=== PATIENT | male | born 1960 | race Caucasian/White ===

== ENCOUNTER 2019-05-24 17:39 | Emergency (ER) | payer SELFPAY ==
[2019-05-24 17:49] VITALS: BP 166/94
== END 2019-05-24 18:32 | disposition left against medical advice (07) ==
LOC: ED 17:39
DX: Z53.21 Procedure and treatment not carried out due to patient leaving prior to being seen by health care provider (principal)
CPT/HCPCS: 99281

== ENCOUNTER 2022-08-26 20:16 | Inpatient (IN) ==
[2022-08-26] MEDS ORDERED: LORazepam 2 mg VIAL 1 ml IV ONE (20:28)
[2022-08-26] MEDS ORDERED: NS 0.9% 1000 ml BAG 1,000 ML IV ONE (20:28)
[2022-08-26 21:42] LABS: ABS Lymphocytes 0.4 10^3/ul (1.0-4.8); ABS Monocytes 0.6 10^3/ul (0-0.8); ABS Neutrophils 8.2 10^3/ul (1.5-7.7); Hematocrit 27 % (42-52); Hemoglobin 8.7 g/dL (14.0-18.0); Lymphocyte % 4.2 %; Mean Corpuscular HGB Conc 32 g/dL (31-36); Mean Corpuscular Hemoglobin 26 pg (27-31); Mean Corpuscular Volume 79 fL (80-94); Mean Platelet Volume 6.7 fL (7.4-10.4); Platelet Count 384 10^3/uL (150-450); Red Blood Count 3.42 10^6 /uL (4.18-5.48); Red Cell Distribution Width 18 % (10-15); White Blood Count 9.2 10^3/uL (3.5-10.8)
[2022-08-26 21:55] LABS: INR 0.91 (0.89-1.11)
[2022-08-26 22:19] LABS: Albumin 3.7 g/dL (3.2-5.2); Anion Gap 5 mmol/L (2-11); CO2 Carbon Dioxide 29 mmol/L (22-32); Calcium 9.1 mg/dL (8.6-10.3); Chloride 98 mmol/L (101-111); Magnesium 1.8 mg/dL (1.9-2.7); Potassium 4.5 mmol/L (3.5-5.0); Sodium 132 mmol/L (135-145)
[2022-08-26 22:25] LABS: ALT 9 U/L (7-52); AST 15 U/L (13-39); Albumin/Globulin Ratio 1.3 (1-3); Alcohol, S < 13 mg/dL (<13); Alkaline Phosphatase 95 U/L (35-149); Blood Urea Nitrogen 20 mg/dL (6-24); Globulin 2.9 g/dL (2-4); Glucose 108 mg/dL (70-100); Total Protein 6.6 g/dL (6.4-8.9); eGFR CKD-EPI 96.3 (>60)
[2022-08-26] MEDS ORDERED: levETIRAcetam 1000MG IVPREMIX 1,000 MG/100 ML BAG IVPB ONE (22:51)
[2022-08-26] MEDS ORDERED: Thiamine 100 MG/ML 2 ml VIAL 100 MG, Folic Acid IV 1 MG, Multiple Vitamin IV ADULT 10 M... IV ONE (22:55)
[2022-08-27] MEDS ORDERED: Albuterol HFA INHALER 8 gm MDI INH PRN (03:46)
[2022-08-27] MEDS ORDERED: Magnesium Sulfate 2 gm BAG 2 GM/50 ML BAG IVPB ONE (03:47)
[2022-08-27 05:05] LABS: ABS Lymphocytes 0.6 10^3/ul (1.0-4.8); ABS Monocytes 0.6 10^3/ul (0-0.8); ABS Neutrophils 5.1 10^3/ul (1.5-7.7); Eosinophil % 0.2 %; Hematocrit 22 % (42-52); Hemoglobin 6.8 g/dL (14.0-18.0); Lymphocyte % 9.9 %; Mean Corpuscular HGB Conc 32 g/dL (31-36); Mean Corpuscular Hemoglobin 25 pg (27-31); Mean Corpuscular Volume 79 fL (80-94); Mean Platelet Volume 6.3 fL (7.4-10.4); Platelet Count 331 10^3/uL (150-450); Red Blood Count 2.72 10^6 /uL (4.18-5.48); Red Cell Distribution Width 17 % (10-15); White Blood Count 6.4 10^3/uL (3.5-10.8)
[2022-08-27 05:48] LABS: Calcium 8.2 mg/dL (8.6-10.3)
[2022-08-27 05:54] LABS: eGFR CKD-EPI 98.7 (>60)
[2022-08-27] MEDS: Enoxaparin 40 MG/0.4 ML SYR SUBCUT SCH (06:53)
[2022-08-27 10:41] LABS: Urine Appearance Cloudy; Urine Bilirubin Negative (Negative); Urine Blood Negative (Negative); Urine Color Yellow; Urine Glucose Negative (Negative); Urine Ketones Negative (Negative); Urine Nitrite Negative (Negative); Urine Protein 3+(>=500 mg/dL) (Negative); Urine Specific Gravity 1.014 (1.002-1.030); Urine Urobilinogen Negative (Negative)
[2022-08-27 10:52] LABS: Urine Bacteria Absent (Absent); Urine Red Blood Cell Trace(0-2/hpf) (Absent); Urine Sperm Present (Absent); Urine Squamous Epithelial Cell Present (Absent); Urine White Blood Cell Trace(0-5/hpf) (Absent)
[2022-08-27] MEDS ORDERED: Nicotine Lozenge mini 4 MG LOZNG.MINI MT PRN (15:38)
[2022-08-27] MEDS ORDERED: diazePAM INJ CARPUJECT 5 MG/ML SYRINGE IV PRN (18:29)
[2022-08-27 19:14] LABS: Hematocrit 25 % (42-52); Hemoglobin 8.1 g/dL (14.0-18.0)
[2022-08-27 19:41] LABS: TSH Ultra Thyroid Stim Horm 0.39 mcIU/mL (0.34-5.60)
[2022-08-28] MEDS: Enoxaparin 40 MG/0.4 ML SYR SUBCUT SCH (07:01)
[2022-08-28] MEDS: Multivitamins/Minerals TAB PO SCH ×2 (08:01→09:35)
[2022-08-28 14:54] LABS: High Sensitivity Troponin 1 Hr 9 pg/mL (<20)
[2022-08-29] MEDS: Enoxaparin 40 MG/0.4 ML SYR SUBCUT SCH (06:43)
[2022-08-29 06:51] LABS: ABS Lymphocytes 0.8 10^3/ul (1.0-4.8); ABS Monocytes 0.5 10^3/ul (0-0.8); ABS Neutrophils 4.2 10^3/ul (1.5-7.7); Eosinophil % 0.8 %; Hematocrit 24 % (42-52); Hemoglobin 7.6 g/dL (14.0-18.0); Lymphocyte % 14.1 %; Mean Corpuscular HGB Conc 32 g/dL (31-36); Mean Corpuscular Hemoglobin 25 pg (27-31); Mean Corpuscular Volume 79 fL (80-94); Mean Platelet Volume 6.9 fL (7.4-10.4); Platelet Count 325 10^3/uL (150-450); Red Cell Distribution Width 17 % (10-15); White Blood Count 5.6 10^3/uL (3.5-10.8)
[2022-08-29 07:23] LABS: Calcium 8.8 mg/dL (8.6-10.3); Potassium 4.3 mmol/L (3.5-5.0); eGFR CKD-EPI 98.3 (>60)
[2022-08-29] MEDS: Multivitamins/Minerals TAB PO SCH ×2 (08:45→08:56)
[2022-08-29] MEDS ORDERED: Gadoteridol (CONTRAST) 279.3 MG/ML 10 ML IV ONE (21:59)
[2022-08-30] MEDS ORDERED: Nicotine GUM 2MG FRUIT FLAVOR PO PRN (00:15)
[2022-08-30] MEDS: Enoxaparin 40 MG/0.4 ML SYR SUBCUT SCH (06:18)
[2022-08-30] MEDS: Multivitamins/Minerals TAB PO SCH (10:36)
[2022-08-31 07:05] LABS: ABS Basophils 0.1 10^3/ul (0-0.2); ABS Eosinophils 0.1 10^3/ul (0-0.6); ABS Lymphocytes 0.8 10^3/ul (1.0-4.8); ABS Monocytes 0.5 10^3/ul (0-0.8); ABS Neutrophils 3.3 10^3/ul (1.5-7.7); Eosinophil % 2.5 %; Hematocrit 20 % (42-52); Hemoglobin 6.9 g/dL (14.0-18.0); Lymphocyte % 16.2 %; Mean Corpuscular HGB Conc 34 g/dL (31-36); Mean Corpuscular Hemoglobin 27 pg (27-31); Mean Corpuscular Volume 80 fL (80-94); Mean Platelet Volume 7.3 fL (7.4-10.4); Platelet Count 299 10^3/uL (150-450); Red Blood Count 2.55 10^6 /uL (4.18-5.48); Red Cell Distribution Width 18 % (10-15); White Blood Count 4.8 10^3/uL (3.5-10.8)
[2022-08-31 07:23] LABS: Anion Gap 7 mmol/L (2-11); Blood Urea Nitrogen 39 mg/dL (6-24); CO2 Carbon Dioxide 25 mmol/L (22-32); Calcium 8.6 mg/dL (8.6-10.3); Chloride 100 mmol/L (101-111); Glucose 93 mg/dL (70-100); Potassium 4.6 mmol/L (3.5-5.0); Sodium 132 mmol/L (135-145); eGFR CKD-EPI 100.2 (>60)
[2022-08-31] MEDS: Enoxaparin 40 MG/0.4 ML SYR SUBCUT SCH (08:02)
[2022-08-31] MEDS: Multivitamins/Minerals TAB PO SCH (10:06)
[2022-08-31 14:25] LABS: Hematocrit 26 % (42-52); Hemoglobin 8.1 g/dL (14.0-18.0)
[2022-08-31 14:48] LABS: Total Iron Binding Capacity 335 mcg/dL (250-450); Transferrin 239 mg/dL (203-362)
[2022-08-31 14:54] LABS: % Iron Saturation 6 % (15-55); Iron < 20 ug/dL (50-212); Unsaturated Iron Binding 315 ug/dL
[2022-08-31 15:09] LABS: Ferritin 20.2 ng/mL (24-336)
[2022-08-31 15:13] LABS: Folate 12.34 ng/mL (5.90-24.80)
[2022-09-01] MEDS: Enoxaparin 40 MG/0.4 ML SYR SUBCUT SCH (06:05)
[2022-09-01] MEDS: Multivitamins/Minerals TAB PO SCH (13:26)
[2022-09-02] MEDS: Enoxaparin 40 MG/0.4 ML SYR SUBCUT SCH (05:18)
[2022-09-02 06:30] LABS: ABS Basophils 0.1 10^3/ul (0-0.2); ABS Eosinophils 0.1 10^3/ul (0-0.6); ABS Lymphocytes 0.6 10^3/ul (1.0-4.8); ABS Monocytes 0.8 10^3/ul (0-0.8); Eosinophil % 1.2 %; Hematocrit 23 % (42-52); Hemoglobin 7.3 g/dL (14.0-18.0); Lymphocyte % 9.3 %; Mean Corpuscular HGB Conc 32 g/dL (31-36); Mean Corpuscular Hemoglobin 26 pg (27-31); Mean Corpuscular Volume 80 fL (80-94); Mean Platelet Volume 7.4 fL (7.4-10.4); Platelet Count 338 10^3/uL (150-450); Red Blood Count 2.81 10^6 /uL (4.18-5.48); Red Cell Distribution Width 18 % (10-15); White Blood Count 6.5 10^3/uL (3.5-10.8)
[2022-09-02 06:55] LABS: Potassium 4.6 mmol/L (3.5-5.0); eGFR CKD-EPI 96.3 (>60)
[2022-09-02] MEDS: Multivitamins/Minerals TAB PO SCH (08:20)
[2022-09-03] MEDS: Enoxaparin 40 MG/0.4 ML SYR SUBCUT SCH (05:33)
[2022-09-03 06:45] LABS: ABS Basophils 0.1 10^3/ul (0-0.2); ABS Eosinophils 0.1 10^3/ul (0-0.6); ABS Lymphocytes 0.7 10^3/ul (1.0-4.8); ABS Monocytes 0.7 10^3/ul (0-0.8); ABS Neutrophils 2.9 10^3/ul (1.5-7.7); Eosinophil % 1.9 %; Hematocrit 20 % (42-52); Hemoglobin 6.8 g/dL (14.0-18.0); Mean Corpuscular HGB Conc 34 g/dL (31-36); Mean Corpuscular Hemoglobin 27 pg (27-31); Mean Corpuscular Volume 79 fL (80-94); Mean Platelet Volume 7.2 fL (7.4-10.4); Platelet Count 310 10^3/uL (150-450); Red Blood Count 2.51 10^6 /uL (4.18-5.48); Red Cell Distribution Width 18 % (10-15); White Blood Count 4.4 10^3/uL (3.5-10.8)
[2022-09-03 07:16] LABS: Calcium 8.7 mg/dL (8.6-10.3); Potassium 4.4 mmol/L (3.5-5.0); eGFR CKD-EPI 99.8 (>60)
[2022-09-03] MEDS: Multivitamins/Minerals TAB PO SCH (09:47)
[2022-09-03 18:10] LABS: Hematocrit 22 % (42-52)
[2022-09-04 05:13] LABS: Hematocrit 20 % (42-52); Hemoglobin 6.5 g/dL (14.0-18.0); Mean Corpuscular HGB Conc 33 g/dL (31-36); Mean Corpuscular Hemoglobin 26 pg (27-31); Mean Corpuscular Volume 80 fL (80-94); Platelet Count 326 10^3/uL (150-450); Red Blood Count 2.49 10^6 /uL (4.18-5.48); Red Cell Distribution Width 18 % (10-15); White Blood Count 4.3 10^3/uL (3.5-10.8)
[2022-09-04] MEDS: Enoxaparin 40 MG/0.4 ML SYR SUBCUT SCH (05:45)
[2022-09-04 05:53] LABS: Calcium 8.9 mg/dL (8.6-10.3); Potassium 4.5 mmol/L (3.5-5.0); eGFR CKD-EPI 92.3 (>60)
[2022-09-04 07:31] LABS: ABS Eosinophils 0.1 10^3/ul (0-0.6); ABS Lymphocytes 0.7 10^3/ul (1.0-4.8); ABS Monocytes 0.8 10^3/ul (0-0.8); ABS Neutrophils 2.7 10^3/ul (1.5-7.7); Eosinophil % 1.9 %; Lymphocyte % 15.8 %
[2022-09-04] MEDS: Multivitamins/Minerals TAB PO SCH (08:04)
[2022-09-05 03:25] VITALS: BP 151/56
[2022-09-05 06:01] LABS: Hematocrit 21 % (42-52); Hemoglobin 6.6 g/dL (14.0-18.0); Mean Corpuscular HGB Conc 31 g/dL (31-36); Mean Corpuscular Hemoglobin 25 pg (27-31); Mean Corpuscular Volume 80 fL (80-94); Mean Platelet Volume 6.8 fL (7.4-10.4); Platelet Count 342 10^3/uL (150-450); Red Blood Count 2.63 10^6 /uL (4.18-5.48); Red Cell Distribution Width 18 % (10-15); White Blood Count 4.3 10^3/uL (3.5-10.8)
[2022-09-05 06:03] LABS: ABS Eosinophils 0.1 10^3/ul (0-0.6); ABS Lymphocytes 0.8 10^3/ul (1.0-4.8); ABS Monocytes 0.8 10^3/ul (0-0.8); ABS Neutrophils 2.6 10^3/ul (1.5-7.7); Eosinophil % 2.2 %; Lymphocyte % 18.1 %
[2022-09-05 06:34] LABS: Calcium 9.1 mg/dL (8.6-10.3); Potassium 4.9 mmol/L (3.5-5.0); eGFR CKD-EPI 99.1 (>60)
[2022-09-05] MEDS: Multivitamins/Minerals TAB PO SCH (09:12)
== END 2022-09-05 10:55 | disposition left against medical advice (07) | DRG 53 ==
LOC: ED 20:16 → EDHOLD 20:16 → SUATTDRO 08-27 11:00 → MEDTELE 08-27 18:27
PROVIDERS: ADMIT Internal Medicine; ATTEND Student in an Organized Health Care Education/Training Program